=== PATIENT | male | born 1990 | race Two or more races ===

== ENCOUNTER 2024-06-10 20:18 | Emergency (ER) | payer BC ==
[~2024-06-10] VITALS: Ht 180.3 cm; Wt 127.0 kg
[2024-06-10] MEDS ORDERED: ONDANSETRON HCL 2 MG/ML VIAL IV STA (21:01)
[2024-06-10] MEDS ORDERED: 0.9 % SODIUM CHLORIDE 1,000 ML IV STA (21:01)
[2024-06-10 22:12] LABS: HEMOGLOBIN 17.3 g/dL (13-16.00); MEAN CELL VOLUME 87.3 fL (80.0-100.00); MEAN CORPUSCULAR HEMOGLOBIN 29.7 pg (27.00-32.0); PLATELET COUNT 212 K/uL (150-450); RED BLOOD COUNT 5.84 M/uL (4.00-6.00); RED CELL DISTRIBUTION WIDTH 12.8 % (11.5-14.5)
[2024-06-10 22:31] LABS: CALCIUM 8.3 mg/dL (8.5-10.1); CREATININE SERUM 1.28 mg/dL (0.70-1.30); GFR 64.33; POTASSIUM 3.29 mEq/L (3.5-5.1)
[2024-06-11 02:22] LABS: PH,URINE 5.5 (5.0-8.0); URINE APPEARANCE Clear; URINE BILIRRUBIN Negative (NEGATIVE); URINE BLOOD Negative; URINE COLOR Yellow; URINE GLUCOSE Negative (NEGATIVE); URINE KETONE Negative (NEGATIVE); URINE LEUKOCYTE Negative; URINE NITRATE Negative; URINE PROTEIN Negative (NEGATIVE)
[2024-06-11 02:25] LABS: URINE BACTERIA 23.2 uL (0.0-1933); URINE EPITHELIAL CELLS 4.8 uL (0.0-38.8); URINE RBC 2.2 uL (0.0-20.8); URINE WBC 4.5 uL (0.0-23.2)
== END 2024-06-11 03:05 | disposition home or self-care (01) ==
LOC: ER 20:20
PROVIDERS: Emergency Medicine
DX: K52.89 Other specified noninfective gastroenteritis and colitis (principal)